=== PATIENT | female | born 2000 | race Caucasian/White ===

== ENCOUNTER 2022-03-02 11:36 | Emergency (ER) | payer OTHER ==
[~2022-03-02] VITALS: Ht 162.6 cm; Wt 72.7 kg
[2022-03-02 15:07] VITALS: BP 126/73
== END 2022-03-02 15:09 | disposition home or self-care (01) ==
LOC: M ED 11:36
DX: S16.1XXA Strain of muscle, fascia and tendon at neck level, initial encounter (principal); V49.49XA Driver injured in collision with other motor vehicles in traffic accident, initial encounter; Y92.410 Unspecified street and highway as the place of occurrence of the external cause

== ENCOUNTER 2022-07-31 16:42 | Emergency (ER) | payer OTHER ==
[~2022-07-31] VITALS: Ht 162.6 cm; Wt 75.4 kg
[2022-07-31] MEDS ORDERED: APAP325T4 PO (16:58)
[2022-07-31] MEDS ORDERED: PRENTAB9 PO (16:58)
[2022-07-31] MEDS ORDERED: ONDANSETRON 4MG ORAL DISINTEGRATING TAB PO ONE ×2 (18:50→21:45)
[2022-07-31] MEDS ORDERED: ACETAMINOPHEN 500 MG TAB PO ONE (18:50)
[2022-07-31] MEDS ORDERED: NS 1,000 ML IV ONE (20:10)
[2022-07-31 20:33] LABS: BASO % 0.2 % (0.0-1.0); HEMATOCRIT 35.4 % (36.0-47.0); HEMOGLOBIN 12.3 g/dl (12.0-15.5); LYMPH # 0.9 10^3/uL (1.5-5.0); LYMPH % 5.9 % (24.0-44.0); MEAN CORPUSCULAR HEMOGLOBIN 30.4 pg (27.0-33.0); MEAN CORPUSCULAR HGB CONC 34.7 g/dl (32.0-36.5); MEAN CORPUSCULAR VOLUME 87.4 fl (80.0-96.0); MONO % 6.1 % (2.0-8.0); NEUTROPHILS # 13.9 10^3/uL (1.5-8.5); NEUTROPHILS % 87.4 % (36.0-66.0); PLATELET COUNT, AUTOMATED 198 10^3/uL (150-450); RED BLOOD COUNT 4.05 10^6/uL (4.00-5.40); WHITE BLOOD COUNT 15.8 10^3/uL (4.0-10.0)
[2022-07-31 21:04] LABS: LIPASE 31 U/L (12-53)
[2022-07-31 21:06] LABS: ALBUMIN 3.9 G/DL (3.2-5.2); ALKALINE PHOSPHATASE 52 U/L (46-116); ALT/SGPT 14 U/L (7.0-40); AST/SGOT 15 U/L (<34); BILIRUBIN,DIRECT 0.2 MG/DL (<0.4); BILIRUBIN,TOTAL 0.6 MG/DL (0.3-1.2); BLOOD UREA NITROGEN 7 MG/DL (9-23); CALCIUM LEVEL 9.2 MG/DL (8.5-10.1); CARBON DIOXIDE LEVEL 24 MMOL/L (20-31); CHLORIDE LEVEL 104 MMOL/L (98-107); CREATININE FOR GFR 0.58 MG/DL (0.55-1.30); GLOMERULAR FILTRATION RATE > 60.0 (>60); GLUCOSE, FASTING 85 MG/DL (60-100); POTASSIUM SERUM 3.8 MMOL/L (3.5-5.1); SODIUM LEVEL 137 MMOL/L (136-145); TOTAL PROTEIN 6.3 G/DL (5.7-8.2)
[2022-07-31] MEDS ORDERED: ONDA4TAB6 PO (21:33)
[2022-07-31 22:02] VITALS: BP 125/54
== END 2022-07-31 22:04 | disposition home or self-care (01) ==
LOC: M ED 16:42
DX: O99.611 Diseases of the digestive system complicating pregnancy, first trimester (principal); Z3A.01 Less than 8 weeks gestation of pregnancy

== ENCOUNTER 2022-12-28 15:54 | Outpatient (CLI) | payer OTHER ==
[~2022-12-28] VITALS: Ht 162.6 cm; Wt 89.1 kg
[~2022-12-28 15:54] MED LIST: APAP325T4 PO; ONDA4TAB6 PO; PRENTAB9 PO
[2022-12-28 16:13] VITALS: BP 129/72
[2022-12-28] MEDS ORDERED: HOME MED LIST COMPLETE! XX SCH (16:20)
[2022-12-28 17:31] VITALS: BP 118/63
[2022-12-28] MEDS ORDERED: MAGNESIUM OXIDE 400MG TAB (MAG-OX) PO ONE (17:35)
[2022-12-28] MEDS ORDERED: diphenhydrAMINE 25MG CAP PO ONE (17:35)
[2022-12-28 18:07] LABS: CREATININE,RANDOM URINE 29.8 MG/DL
[2022-12-28 18:09] LABS: TOTAL PROTEIN,RANDOM URINE < 6.0 MG/DL (0.0-14.0)
== END 2022-12-28 18:40 ==
LOC: M LDO 15:54
PROVIDERS: ATTEND Obstetrics & Gynecology
DX: O26.893 Other specified pregnancy related conditions, third trimester (principal); R51.9 Headache, unspecified; Z3A.28 28 weeks gestation of pregnancy; Z87.820 Personal history of traumatic brain injury
CPT/HCPCS: 59025; 82570; 84156; G0463